=== PATIENT | female | born 1975 | race Caucasian/White ===

== ENCOUNTER 2023-06-30 19:00 | Emergency (ER) | payer OTHER ==
--- OUTSIDE RECORDS SUMMARY | 2023-06-30 19:04 | XMS REPORT | Continuity of Care Document ---
:1975 Author Organization [facility] t Address 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 Social History Social Habit Start Date Stop Date Quantity Comments Source History of tobacco Cigarette Smoker Eli Talavera use - External Gender identity Eli daily - External Sexual orientation Eli Talavera - External History of Social 2023-03-29 2023-03-29 Eli Talavera function 00:00:00 00:00:00 - External Sex Ass[birth year] At [birth year] Eli daily 00:00:00 00:00:00 - External Smoking Status Start Date Stop Date Source Smokes tobacco daily 2023-03-29 00:00:00 Eli Seybold - External Medications Ordered Filled Start Stop Current Ordering Indication Dosage Frequency Signature Comments Components Source Medication Medication Date Date Medication? Clinician (SIG) Name Name Venlafaxine Yes [id number] 37.5mg Take 1 Eli HCl 37.5 MG 8-04 tablet Seybol d oral Tablet 00:00: (37.5 mg - 00 total) by Externa mouth l daily busPIRone Yes [id number] 10mg Take 1 Ke lsey HCl 10 MG 8-04 tablet (10 Seyb old oral Tablet 00:00: mg total) - 00 by mouth 2 Externa times l daily Nitrofurant Yes [id number] 100mg Take 1 Eli oin Monohyd 8-04 capsule Seybo ld Macro 00:00: (100 mg - (Macrobid) 00 total) by Exte rna 100 MG oral mouth 2 l Capsule times daily Sumatriptan Yes [id number] 25mg Take 1 Eli Succinate 8-04 tablet (25 yb old 25 MG oral 00:00: mg total) - Tablet 00 by mouth Externa once as l needed for migraine (May repeat in 2 hours if unresolved . Do not exceed 200 mg in 24 hours.) Fluocinonid 2022- Yes [id number] Apply 1 Eli e 0.05 % 06-29 applicatio Seyb old apply 00:00: 04:59 n. - externally 00 :00 topically Exte rna Solution daily for l 14 days Metronidazo 2022- No [id number] 500mg Take 1 Eli le (Flagyl) -04 02- tablet Seybo ld 500 MG oral 00:00: 00:00 (500 mg - Tablet 00 :00 total) by Externa mouth 2 l times daily Doxycycline 2022- No 100mg Take 1 Ke lsey Hyclate 100 - 08- tablet Seybo ld MG oral 00:00: 00:00 (100 mg - Tablet 00 :00 total) by Externa mouth l every 12 hours busPIRone 2022-0 2022- No 10mg Take 1 Kelse y HCl 10 MG 17 - tablet (10 Sey bold oral Tablet 00:00: 00:00 mg total) - 00 :00 by mouth 2 Externa times l daily Vital Signs Vital Name Observation Time Observation Value Comments Source Systolic blood 2023-06-29 16:06:00 132 mm[Hg] Eli Dialloold - pressure External Diastolic blood 2023-06-29 16:06:00 78 mm[Hg] Anthony aranda Seybold - pressure External Heart rate 2023-06-29 16:06:00 82 /min Eli Lujan eybold - External Body temperature 2023-06-29 16:06:00 36.56 Patti Anne-Marie rodríguez Seybold - External Respiratory rate 2023-06-29 16:06:00 16 /min Anne-Marie rodríguez Seybold - External Body height 2023-06-29 16:06:00 160 cm Eli rodríguezbosky - External Body weight 2023-06-29 16:06:00 89.359 kg Eli rodríguezbold - External BMI 2023-06-29 16:06:00 34.90 kg/m2 Eli Lujan marcosbosky - External Oxygen saturation in 2023-06-29 16:06:00 98 /min Eli Talavera - Arterial blood by External Pulse oximetry Procedures Procedure Date / Time Performed Performing Clinician Sourc e URINALYSIS NONAUTO W/O 2023-06-29 16:30:00 Cesia Ramos - SCOPE External Encounters Start End Encounter Admission Attending Care Care Encounter Source Date/Time Date/Time Type Type Clinicians Facility Department ID 2023-10-09 2023-10-09 Outpatient ELI MORELAND [id number] Eli 14:00:00 14:00:00 JARRED Seybo ld 2023-08-02 2023-08-02 Outpatient BILLY ASIF [id number] Eli 14:00:00 14:00:00 Seybol d 2023-07-10 2023-07-10 Outpatient ELI RAMOS [id number] Eli 11:00:00 11:00:00 CESIA Carcamoybol erma 2023-06-29 2023-06-29 Outpatient LAB90 ELI BENITEZ [id number] Eli 11:50:00 11:50:00 Seybol d 2023-06-29 2023-06-29 Outpatient ELI RAMOS [id number] Eli 11:00:00 11:00:00 CESIA ritchie 2023-06-08 2023-06-08 Outpatient ELI SOMMERS [id number] Eli 14:45:00 14:45:00 AMIRHOSSEIN Se ybold 2023-05-18 2023-05-18 Outpatient ELI GARCÍA [id number] Eli 00:00:00 00:00:00 ISAIAH Dialloo sky 2023-05-18 2023-05-18 Outpatient NEHEMIAH ELI BENITEZ [id number] Eli 00:00:00 00:00:00 MD Rafal LOPEZ 2023-05-11 2023-05-11 Outpatient ELI SOMMERS [id number] Eli 13:45:00 13:45:00 AMIRHOSSEIN Se ybold 2023-05-11 2023-05-11 Outpatient LEI GARCÍA [id number] Eli 00:00:00 00:00:00 ISAIAH Dialloo sky 2023-05-09 2023-05-09 Outpatient ELI RAMOS [id number] Eli 14:00:00 14:00:00 CESIA ritchie 2023-05-08 2023-05-08 Outpatient NEHEMIAH ELI BENITEZ [id number] Eli 00:00:00 00:00:00 MD Imnai LOPEZol erma 2023-05-04 2023-05-04 Outpatient ELI GARCÍA [id number] Eli 00:00:00 00:00:00 ISAIAH Carcamoybo sky 2023-05-02 2023-05-02 Outpatient ELI SOMMERS [id number] Eli 14:45:00 14:45:00 AMIRHOSSEIN Se ybold 2023-04-27 2023-04-27 Outpatient SHANA BENITEZ [id number] Eli 00:00:00 00:00:00 EY, KAROLINE Se ybold 2023-04-19 2023-04-19 Outpatient ELI RAMOS [id number] Eli 15:00:00 15:00:00 CESIA Diallool erma 2023-03-31 2023-03-31 Outpatient MATTHIEU ELI ELI [id number] Eli 00:00:00 00:00:00 AMIRHOSSEIN Se killian 2023-03-29 2023-03-29 Outpatient ELI SOMMERS ELI [id number] Eli 13:30:00 13:30:00 AMIRHOSSEIN Se killian 2023-03-12 2023-03-12 Outpatient [facility] [id number] Wesley 11:01:00 11:01:00 [id number] Rod Results Test Description Test Time Test Comments Results Result Comments Source URINALYSIS NONAUTO W/O SCOPE 2023-06-29 16:33:00 Test Item Value Reference Range Interpretation Comme nts UD KETONES (test code = neg 5-160 235032) UD GLUCOSE (test code = neg 100-2000 117802) UD PROTEIN (test code = neg Trace - 2000 mg/dL 122095) UD LEUKOCYTES (test code = trace Trace - Large @ 2 586281) min. UD NITRITE (test code = neg Neg. - Pos. @ 60 672132) sec. UD UROBILINOGEN (test code = neg 0.2-8 689339) UD PH (test code = 469691) See_Comment [Automated message] The system which ge nerated this result tra nsmitted reference range : 5.0 - 8.5 @ 60 sec.. The reference range was not used to interpr et this result as normal/abnormal . UD BLOOD (test code = 273633) small Neg. - Large @ 60 sec. UD SPECIFIC GRAVITY (test See_Comment [ Automated message] The code = 985757) system which generated this result tra nsmitted reference range : 1.000 - 1.030 @ 45 sec. . The reference range was not used to interpr et this result as normal/abnormal . UD BILIRUBIN (test code = small Neg. - Large @ 45 173558) sec. Lab Interpretation (test code Abnormal = 61761-0) Eli Talavera - External Notes Date/Time Note Provider Source 2023-06-29 11:21:06-00:00 Formatting of this note migh t be different from the original. Corinne BenitezSadaf [facility] Patient is in the office wit h c/o Migraines, Right sided stabbing pain, with right eye vision changes, she feels like the back of her head is swelling at that time. Also reports painful urination and bu rning with urination; report s hx of seizures, needing referral to neurologist and last seizure approx. 2 months ago, she is not certain as they usually happen while she is sleeping.
[2023-06-30 20:15] LABS: Specific Gravity 1.018 (1.005-1.030)
[2023-06-30 20:17] LABS: Specific Gravity 1.018 (1.005-1.030); Urine Bacteria None Seen /HPF (<20); Urine Bilirubin NEGATIVE (Negative); Urine Blood Trace (Negative); Urine Clarity Turbid (Clear); Urine Color Light-Yellow (Yellow); Urine Glucose NEGATIVE (Negative); Urine Mucus Slight /HPF (None Seen); Urine Protein NEGATIVE (Negative); Urine Urobilinogen Normal (Normal)
[2023-06-30 20:38] LABS: Absolute Lymphocytes (CBC) 2.5 K/uL (0.7-4.9); Hematocrit 34.8 % (36.0-45.0); Lymphocytes % 17.7 % (15.3-44.8); MCV 85.7 fL (80-100); MPV 8.1 fL (7.6-11.3); RBC Red Blood Cell Count 4.06 M/uL (3.86-4.86)
[2023-06-30] MEDS ORDERED: MORPHINE 4 MG/ML SYR ONE ×2 (20:46→22:29)
[2023-06-30] MEDS ORDERED: NA CHLORIDE 0.9% 1,000 ML ONE (20:46)
[2023-06-30] MEDS ORDERED: ONDANSETRON 4 MG/2 ML VIAL ONE (20:46)
[2023-06-30 20:48] LABS: Albumin 3.4 g/dL (3.4-5.0); Bilirubin Total 0.1 mg/dL (0.2-1.0); Potassium 3.8 mEq/L (3.5-5.1); Protein, Total 7.5 g/dL (6.4-8.2)
--- NOTE | 2023-06-30 21:25 | RAD REPORT ---
EXAM DESCRIPTION: CTAbdomen Pelvis W Contrast - 06/30/2023 9:02 pm CLINICAL HISTORY: Abdominal pain. ABD PAIN COMPARISON: <Comparisons> TECHNIQUE: Biphasic CT imaging of the abdomen and pelvis was performed with 100 ml non-ionic IV cont rast. All CT scans are performed using dose optimization technique as appropriate and may include automated exposure control or mA/KV adjustment according to patient size. FINDINGS: 6 mm noncalcified nodule right lung base posteriorly. The liver, spleen, pancreas, adrenal glands and kidneys are within normal limits. 4 mm stone is seen inferior calyx left kidney. No bowel obstruction, free air, free fluid or abscess. The appendix is normal. No evidence of signi ficant lymphadenopathy. No suspicious bony findings. IMPRESSION: No acute intra-abdominal or pelvic finding. 6 mm nodule in the right lung base noted, nonspecific. Delete that The USPSTF recommends annual screening for lung cancer with low-dose CT (LDCT) in adults aged 50 to 80 years who have a 20 pack-year smoking history and currently smoke or have quit within the past 15 years.
[2023-06-30] MEDS ORDERED: CEFTRIAXONE 1000 MG/VIAL ONE (21:55)
--- NOTE | 2023-06-30 23:22 | ER ---
Nurse's Notes [facility] Name: Erika Machado Age: 48 yrs Sex: Female : 1975 Arrival Date: 06/30/2023 Time: 19:00 Bed 17 Private MD: Diagnosis: UTI/ Urinary tract infection, site not specified;Other ovarian cysts Presentation: 06/30 19:12 Chief complaint: Patient states: LEFT PELVIC PAIN RADIATING TO LEFT LUMBAR x2 HR, DX dd1 WITH UTI Y/D. Coronavirus screen: At this time, the client does not indicate any symptoms associated with coronavirus-19. Ebola Screen: No symptoms or risks identified at this time. Initial Sepsis Screen: Does the patient meet any 2 criteria? No. Patient's initial sepsis screen is negative. Does the patient have a suspected source of infection? No. Patient's initial sepsis screen is negative. Risk Assessment: Do you want to hurt yourself or someone else? Patient reports no desire to harm self or others. Onset of symptoms was June 30, 2023. 19:12 Method Of Arrival: Wheelchair dd1 19:12 Acuity: WENDI 3 dd1 Triage Assessment: 19:16 General: Appears distressed, uncomfortable, Behavior is calm, cooperative, appropriate dd1 for age. Pain: Complains of pain in pelvis. EENT: No deficits noted. Neuro: No deficits noted. Cardiovascular: No deficits noted. Respiratory: No deficits noted. GI: No signs and/or symptoms were reported involving the gastrointestinal system. : Reports pain in left in suprapubic area in lower back. Derm: No deficits noted. Musculoskeletal: No deficits noted. Historical: - Allergies: 19:13 No Known Allergies; dd1 - Home Meds: 19:13 Sumatriptan Sub-Q [Active]; venlafaxine 37.5 mg oral tablet [Active]; buspirone 10 mg dd1 Oral tablet 2 times per day [Active]; - PMHx: 19:13 Arthritis; COPD; Seizures; Migraine; dd1 - PSHx: 19:13 Eye implant, left; Ligation of fallopian tube; Tonsillectomy; dd1 - Immunization history:: Adult Immunizations up to date. - Social history:: Smoking status: unknown. Screenin:00 [facility] ED Fall Risk Assessment (Adult) History of falling in the last 3 months, ha1 including since admission No falls in past 3 months (0 pts) Confusion or Disorientation No (0 pts) Intoxicated or Sedated No (0 pts) Impaired Gait No (0 pts) Mobility Assist Device Used No (0 pt) Altered Elimination No (0 pt) Score/Fall Risk Level 0 - 2 = Low Risk Oriented to surroundings, Maintained a safe environment, Educated pt \T\ family on fall prevention, incl call for assistance when getting out of bed. Abuse screen: Denies threats or abuse. Denies injuries from another. Nutritional screening: No deficits noted. Tuberculosis screening: No symptoms or risk factors identified. Assessment: 19:50 General: Appears uncomfortable, Behavior is calm, cooperative. Pain: Complains of pain ha1 in abdomen Pain does not radiate. Pain currently is 8 out of 10 on a pain scale. Neuro: Level of Consciousness is awake, alert, obeys commands, Oriented to person, place, time, situation. Cardiovascular: Patient's skin is warm and dry. Respiratory: Airway is patent Respiratory effort is even, unlabored, Respiratory pattern is regular, symmetrical. GI: Abdomen is round non-distended, Bowel sounds present X 4 quads. Abd is soft and non tender. GI: Reports diarrhea, nausea. : No signs and/or symptoms were reported regarding the genitourinary system. Derm: Skin is pink, warm \T\ dry. Musculoskeletal: Circulation, motion, and sensation intact. Range of motion: intact in all extremities. 20:49 Reassessment: Patient and/or family updated on plan of care and expected duration. Pain ha1 level reassessed. Patient is alert, oriented x 3, equal unlabored respirations, skin warm/dry/pink. going to CT Patient states feeling better. Patient states symptoms have improved. 21:08 Reassessment: back from CT. ha1 22:00 Reassessment: Patient and/or family updated on plan of care and expected duration. Pain ha1 level reassessed. Patient is alert, oriented x 3, equal unlabored respirations, skin warm/dry/pink. 23:00 Reassessment: Patient and/or family updated on plan of care and expected duration. Pain ha1 level reassessed. Patient is alert, oriented x 3, equal unlabored respirations, skin warm/dry/pink. Vital Signs: 19:12 BP 136 / 108; Pulse 84; Resp 16; Temp 98; Pulse Ox 99% ; Weight 89.36 kg; Height 5 ft. dd1 3 in. ; 20:00 BP 145 / 77; Pulse 80; Resp 18 S; Pulse Ox 99% on R/A; ha1 20:49 BP 145 / 75; Pulse 79; Resp 18; Pulse Ox 99% on R/A; ha1 21:50 BP 148 / 82; Pulse 73; Resp 17 S; Pulse Ox 98% on R/A; ha1 22:15 BP 124 / 64; Pulse 72; Resp 16 S; Pulse Ox 100% ; ha1 22:45 BP 124 / 64; Pulse 77; Resp 18 S; Pulse Ox 100% ; ha1 23:15 BP 121 / 61; Pulse 73; Resp 15 S; Pulse Ox 100% on R/A; ha1 19:12 Body Mass Index 34.90 (89.36 kg, 160.02 cm) dd1 ED Course: 19:02 Patient arrived in ED. mg5 19:09 Laura Jack PA-C is PHCP. sb4 19:09 Omid Nunez MD is Attending Physician. sb4 19:13 Triage completed. dd1 19:15 Arm band placed on. dd1 19:16 Patient has correct armband on for positive identification. Placed in gown. Bed in low ha1 position. Call light in reach. Side rails up X 1. 19:50 Missed attempt(s): 22 gauge in left forearm. ha1 19:55 Missed attempt(s): 22 gauge in right forearm. ha1 20:09 UAM Sent. wm 20:09 Test, Urine Sent. wm 20:24 Pauly Rodriguez, RN is Primary Nurse. ha1 20:25 Inserted saline lock: 22 gauge in right forearm, using aseptic technique. Blood pf1 collected. 20:26 CBC with Diff Sent. pf1 20:26 CMP Sent. pf1 20:26 Lipase Sent. pf1 21:04 CT Abd/Pelvis - IV Contrast Only In Process Unspecified. EDMS 22:40 US Transvaginal Study (Probe) In Process Unspecified. EDMS 23:21 Eugenie Antonio MD is Referral Physician. sb4 23:45 No provider procedures requiring assistance completed. ha1 23:45 IV discontinued, intact, bleeding controlled, No redness/swelling at site. Pressure ha1 dressing applied. 07/01 00:31 Provided Education on: follow ups. ha1 Administered Medications: 06/30 20:25 Drug: NS 0.9% IV 1000 ml Route: IV; Rate: 1 bolus; Site: left forearm; ha1 23:45 Follow up: Response: No adverse reaction; IV Status: Completed infusion; IV Intake: ha1 1000ml 20:25 Drug: Ondansetron IVP 4 mg Route: IVP; Site: right forearm; ha1 20:49 Follow up: Response: No adverse reaction; Nausea is decreased ha1 20:28 Drug: morphine IVP or IV 4 mg Route: IVP; Infused Over: 4 mins; Site: right forearm; ha1 20:49 Follow up: Response: No adverse reaction; Pain is decreased; RASS: Alert and Calm (0) ha1 21:35 Drug: Rocephin IV 1 grams Route: IV; Rate: calculated rate; Site: right forearm; ha1 23:47 Follow up: Response: No adverse reaction ha1 22:23 Drug: morphine IVP or IV 4 mg Route: IVP; Infused Over: 4 mins; Site: right forearm; ha1 22:45 Follow up: Response: No adverse reaction; Pain is decreased; RASS: Alert and Calm (0) ha1 Medication: 23:45 VIS not applicable for this client. ha1 Intake: 23:45 IV: 1000ml; Total: 1000ml. ha1 Outcome: 23:21 Discharge ordered by . sb4 23:45 Discharged to home ambulatory. ha1 23:45 Discharged to home ambulatory, with family. 23:45 Condition: stable 23:45 Discharge instructions given to patient, family, Instructed on discharge instructions, follow up and referral plans. medication usage, Demonstrated understanding of instructions, follow-up care, medications, Prescriptions given X 2. 23:49 Patient left the ED. ha1 Signatures: Dispatcher [employer] EDMS Priyanka Jaimes Heidy RN RN ha1 Laura Jack, PA-C PALexy sb4 Micaela Myers RN RN pf1 Mae Benson mg5 Stephane Hood, RN RN dd1
--- NOTE | 2023-06-30 23:22 | EDPHYS ---
Physician Documentation [facility] Name: Erika Machado Age: 48 yrs Sex: Female : 1975 Arrival Date: 06/30/2023 Time: 19:00 Bed 17 Private MD: ED Physician Omid Nunez HPI: 06/30 19:40 This 48 yrs old Female presents to ER via Wheelchair with complaints of Low Back Pain, sb4 Abdominal Pain, Walking Pain. 19:40 patient states she was diagnosed with a UTI yesterday and prescribed macrobid. she has sb4 been taking the medication as prescribed but states she has developed excruciating left lower quadrant/pelvic pain that radiates to her back. she endorses nausea and intermittent fevers. denies any vaginal bleeding. reports history of ovarian cysts. Historical: - Allergies: 19:13 No Known Allergies; dd1 - Home Meds: 19:13 Sumatriptan Sub-Q [Active]; venlafaxine 37.5 mg oral tablet [Active]; buspirone 10 mg dd1 Oral tablet 2 times per day [Active]; - PMHx: 19:13 Arthritis; COPD; Seizures; Migraine; dd1 - PSHx: 19:13 Eye implant, left; Ligation of fallopian tube; Tonsillectomy; dd1 - Immunization history:: Adult Immunizations up to date. - Social history:: Smoking status: unknown. ROS: 23:26 Constitutional: Negative for fever, chills, and weight loss, Eyes: Negative for injury, sb4 pain, redness, and discharge, Cardiovascular: Negative for chest pain, palpitations, and edema, Respiratory: Negative for shortness of breath, cough, wheezing, and pleuritic chest pain. 23:26 Abdomen/GI: Positive for abdominal pain, nausea, Negative for vomiting, diarrhea. 23:26 Back: Positive for pain at rest. 23:26 : Positive for urinary symptoms, pelvic pain, Negative for vaginal bleeding, vaginal discharge. 23:26 All other systems are negative. Exam: 23:26 Head/Face: Normocephalic, atraumatic. Eyes: Extra-ocular motions intact. Periorbital sb4 areas with no swelling, redness, or edema. Respiratory: Lungs have equal breath sounds bilaterally, clear to auscultation and percussion. No rales, rhonchi or wheezes noted. No increased work of breathing, no retractions or nasal flaring. Abdomen/GI: Soft, non-tender, no distension. Back: No spinal tenderness. No costovertebral tenderness. Full range of motion. Skin: Warm, dry with normal turgor. Normal color with no rashes, no lesions, and no evidence of cellulitis. MS/ Extremity: Pulses equal, no cyanosis. Neurovascular intact. Full, normal range of motion. 23:26 Constitutional: The patient appears alert, awake, in obvious distress, in obvious pain, uncomfortable. Vital Signs: 19:12 BP 136 / 108; Pulse 84; Resp 16; Temp 98; Pulse Ox 99% ; Weight 89.36 kg; Height 5 ft. dd1 3 in. ; 20:00 BP 145 / 77; Pulse 80; Resp 18 S; Pulse Ox 99% on R/A; ha1 20:49 BP 145 / 75; Pulse 79; Resp 18; Pulse Ox 99% on R/A; ha1 21:50 BP 148 / 82; Pulse 73; Resp 17 S; Pulse Ox 98% on R/A; ha1 22:15 BP 124 / 64; Pulse 72; Resp 16 S; Pulse Ox 100% ; ha1 22:45 BP 124 / 64; Pulse 77; Resp 18 S; Pulse Ox 100% ; ha1 23:15 BP 121 / 61; Pulse 73; Resp 15 S; Pulse Ox 100% on R/A; ha1 19:12 Body Mass Index 34.90 (89.36 kg, 160.02 cm) dd1 MDM: 19:09 Patient medically screened. sb4 23:26 Differential diagnosis: UTI, ovarian torsion, ovarian cyst, pyelonephritis, nonspecific sb4 abd pain, chronic back pain. Data reviewed: vital signs, nurses notes, lab test result(s), radiologic studies, and as a result, I will discharge patient. Counseling: I had a detailed discussion with the patient and/or guardian regarding: the historical points, exam findings, and any diagnostic results supporting the discharge/admit diagnosis, the presence of at least one elevated blood pressure reading (>120/80) during this emergency department visit, lab results, radiology results, the need for outpatient follow up, an OB/Gyne specialist, to return to the emergency department if symptoms worsen or persist or if there are any questions or concerns that arise at home. Special discussion: Based on the patient's Hx, exam, and Dx evaluation, there is no indication for emergent surgery or inpatient Tx. It is understood by the patient/guardian that if the Sx's persist or worsen they need to return immediately for re-evaluation. 06/30 19:17 Order name: UAM; Complete Time: 20:33 sb4 06/30 19:17 Order name: Test, Urine; Complete Time: 20:33 sb4 06/30 19:40 Order name: CBC with Diff; Complete Time: 20:43 sb4 06/30 19:40 Order name: CMP; Complete Time: 20:50 sb4 06/30 19:40 Order name: Lipase; Complete Time: 20:50 sb4 06/30 19:40 Order name: Lactate w/ 2H reflex if indic.; Complete Time: 20:50 sb4 06/30 20:20 Order name: Urine Culture EDMS 06/30 19:40 Order name: CT Abd/Pelvis - IV Contrast Only; Complete Time: 21:27 sb4 06/30 22:15 Order name: US Transvaginal Study (Probe) sb4 06/30 19:40 Order name: IV Saline Lock; Complete Time: 20:26 sb4 06/30 19:40 Order name: Labs collected and sent; Complete Time: 20:26 sb4 Administered Medications: 20:25 Drug: NS 0.9% IV 1000 ml Route: IV; Rate: 1 bolus; Site: left forearm; ha1 23:45 Follow up: Response: No adverse reaction; IV Status: Completed infusion; IV Intake: ha1 1000ml 20:25 Drug: Ondansetron IVP 4 mg Route: IVP; Site: right forearm; ha1 20:49 Follow up: Response: No adverse reaction; Nausea is decreased ha1 20:28 Drug: morphine IVP or IV 4 mg Route: IVP; Infused Over: 4 mins; Site: right forearm; ha1 20:49 Follow up: Response: No adverse reaction; Pain is decreased; RASS: Alert and Calm (0) ha1 21:35 Drug: Rocephin IV 1 grams Route: IV; Rate: calculated rate; Site: right forearm; ha1 23:47 Follow up: Response: No adverse reaction ha1 22:23 Drug: morphine IVP or IV 4 mg Route: IVP; Infused Over: 4 mins; Site: right forearm; ha1 22:45 Follow up: Response: No adverse reaction; Pain is decreased; RASS: Alert and Calm (0) ha1 Disposition: 07/01 02:41 Co-signature as Attending Physician, Omid Nunez MD I agree with the assessment sp4 and plan of care. I reviewed the patient's care provided by the Advanced Practice Provider and agree with the diagnosis and treatment plan. Disposition Summary: 06/30/23 23:21 Discharge Ordered Location: Home sb4 Problem: an ongoing problem sb4 Symptoms: have improved sb4 Condition: Stable sb4 Diagnosis - UTI/ Urinary tract infection, site not specified sb4 - Other ovarian cysts sb4 Followup: sb4 - With: Eugenie Antonio MD - When: 2 - 3 days - Reason: Recheck today's complaints, Continuance of care, Re-evaluation by your physician Discharge Instructions: - Discharge Summary Sheet sb4 - Urinary Tract Infection, Adult, [id number] sb4 - Ovarian Cyst, [id number] sb4 Forms: - Work release form sb4 - Medication Reconciliation Form sb4 - Thank You Letter sb4 - Antibiotic Education sb4 - Prescription Opioid Use sb4 - Patient Portal Instructions sb4 Prescriptions: - Tramadol 50 mg Oral Tablet - take 1 tablet by ORAL route every 8 hours as needed; 6 tablet; Refills: 0, sb4 Product Selection Permitted - cefpodoxime 100 mg Oral Tablet - take 1 tablet by ORAL route every 12 hours for 10 days take with food; 20 sb4 tablet; Refills: 0, Product Selection Permitted Signatures: Dispatcher [employer] Pauly Chino, RN RN ha1 Laura Jack PA-C PA-C sb4 Omid Nunez MD MD sp4 Stephane Hood, RN RN dd1
[2023-07-01 00:13] VITALS: TEMP 98
[2023-07-01 00:19] VITALS: O2SAT 100
[2023-07-01 00:23] VITALS: BP 121/61
--- NOTE | 2023-07-02 10:31 | RAD REPORT ---
EXAM DESCRIPTION: Transvaginal Study Probe [facility]: US PELVIS TRANSVAGINAL CLINICAL HISTORY: 48 years Female LLQ pain COMPARISON: None TECHNIQUE: Endovaginal pelvic ultrasound was performed. FINDINGS: The uterus appears unremarkable and measures 8.4 cm longitudinally. The endometrial stripe is somewhat poorly defined and mildly thickened measuring approximately 1.1 cm Complex nabothian cysts adjacent to the cervical canal measuring approximately 1.8 cm in diameter and internal echoes which may represent hemorrhagic components or debris. The right ovary measures 2.8 x 2.7 x 2.5 cm. Right ovary somewhat poorly defined. Right ovarian vascu lar flow documented The left ovary measures 4.5 x 3.7 x 2.7 cm. Left ovarian follicles with internal echoes, which may be hemorrhagic, the largest measuring approximately 2.1 cm in diameter. Left ovarian vascular flow is documented. IMPRESSION: 1. Left ovarian follicles with internal echoes, which may be hemorrhagic. The largest measures 2.1 cm in diameter. 2. Mildly thickened endometrial stripe, related to the phase of the menstrual cycle. 3. Complex nabothian cysts adjacent to the cervical canal with internal echoes which may represent hemorrhagic components or debris. 4. Ovarian vascular flow is documented bilaterally. Electronically signed by: Aly Orr MD 06/30/2023 11:07 PM CDT Due to temporary technical issues with the PACS/Fluency reporting system, reports are being signed by the in house radiologist without review as a courtesy to ensure prompt reporting. The interpreting r adiologist is fully responsible for the content of the report.
== END 2023-06-30 23:49 | disposition home or self-care (01) ==
LOC: ER 19:00
DX: N39.0 Urinary tract infection, site not specified (principal); N83.292 Other ovarian cyst, left side
CPT/HCPCS: 96361; 87088; 85025; 81001; 87086; 36415; 81025; 83605; 83690; 80053; 74177; 76830; 96375; 96374; 99284; Q9967; J2405; J7030; J0696